=== PATIENT | female | born 1975 | race Caucasian/White ===

== ENCOUNTER 2024-06-19 11:46 | Outpatient (CLI) | payer MEDICAID, SELFPAY ==
--- NOTE | 2024-06-19 09:58 | DI.RAD_ITS ---
Exam(s) XR KNEE LT 4V AP,LAT,DANIEL,PAT EXAM: XR KNEE LT 4V AP,LAT,DANIEL,PAT CLINICAL HISTORY: knee pain. TECHNIQUE: 2D digital imaging was performed of the left knee. Four images were obtained. Merchant, AP, lateral and PA tunnel views were obtained. COMPARISON: No exams were available for comparison FINDINGS: BONES: No acute fracture is present. No bony destructive lesion is seen. JOINTS: There is tricompartment osteoarthritis characterized by joint space narrowing and osteophytes . The findings are most marked in the patellofemoral joint. There does appear to be a small joint e ffusion. There is a well corticated density posterior to the lateral femoral condyle. SOFT TISSUE: Normal. IMPRESSION: Marked osteoarthritis of the left knee, most marked at the patellofemoral joint. DATA REPOSITORY: RADIATION DOSE DELIVERED:
--- NOTE | 2024-06-19 10:00 | DI.RAD_ITS ---
Exam(s) XR KNEE RT 4V AP,LAT,DANIEL,PAT EXAM: XR KNEE RT 4V AP,LAT,DANIEL,PAT CLINICAL HISTORY: knee pain. TECHNIQUE: 2D digital imaging was performed of the right knee. Four views obtained. Merchant, AP, la teral and PA tunnel views were obtained. COMPARISON: CR XR KNEE LT 4V AP,LAT,DANIEL,PAT from 06/19/2024 FINDINGS: BONES: No acute fracture is present. No bony destructive lesion is seen. JOINTS: There is tricompartmental osteoarthritis characterized by joint space narrowing and osteophyt es. The findings are most marked in the patellofemoral joint. No joint effusion is seen. SOFT TISSUE: Normal. IMPRESSION: Marked right knee osteoarthritis, most marked at the patellofemoral joint. DATA REPOSITORY: RADIATION DOSE DELIVERED:
== END 2024-06-19 11:47 | disposition home or self-care (01) ==
LOC: DIORS 11:49
PROVIDERS: PCP Registered Nurse; Visit Provider Physician Assistant
DX: M25.561 Pain in right knee (principal); M25.562 Pain in left knee
CPT/HCPCS: 73564